=== PATIENT | female | born 1960 | race Caucasian/White ===

== ENCOUNTER 2024-09-02 09:18 | Emergency (ER) | payer MEDICARE, SELFPAY ==
[2024-09-02 09:23] VITALS: BP 154/88; PULSE 89; TEMP 36.7; O2SAT 100; BMI 28.3
[2024-09-02] MEDS: ADACEL DIPH,PERTUSS(ACELL),TET VAC/PF 0.5 ML ADULT SYRINGE IM (09:56)
[2024-09-02] MEDS: LIDOCAINE HCL 1% 100 MG/10 ML MDV INJ (09:57)
--- NOTE | 2024-09-02 14:23 | ED_ITS ---
HPI - Wound/Laceration General Chief Complaint: Wound/Laceration Stated Complaint: LACAERATION Time Seen by Provider: 09/02/24 09:28 Source: patient Mode of arrival: walk-in Limitations: no limitations History of Present Illness HPI narrative: The patient have a laceration to the dorsum of the left hand that she sustained while she was using a knife at the kitchen. She was just cutting corn squash. The patient denies any other injury and she does not remember the last time she had a tetanus booster Related Data Home Medications ?Medication ?Instructions ?Recorded ?Confirmed No Known Home Medications 09/02/24 09/02/24 Allergies Allergy/AdvReac Type Severity Reaction Status Date / Time No Known Drug Allergies Allergy Verified 09/02/24 09:26 Review of Systems ROS Status of ROS 10 or more systems reviewed and unremark able except as noted in history and below PFSH PFSH Social History Little interest or pleasure in doing things: not at all Feeling down, depressed, or hopeless: not at all Exam Narrative Exam Narrative: Nurses notes and vital signs reviewed and patient is not hypoxic. Left arm: The patient had laceration to the dorsum of the left hand mostly just 2 cm distal to the wrist . Horizontal laceration that is measuring almost 5 cm linear cutting through the skin but not exposing the underlying structures there is no tendon exposure and there is no significant bleeding. Have a full range of movement in her fingers including the thumb, the patient laceration just over the first metacarpal head General: Well-appearing and in no apparent distress. Skin: Warm, dry, no pallor noted. No rash. Head: Normocephalic, atraumatic. Neck: Supple, non-tender. Eye: Pupils are equal, round and EOMI. No scleral icterus. Cardiovascular: Regular Rate and Rhythm without murmur, gallop or rub. Respiratory: No accessory muscle use or respiratory distress. Lungs are clear to auscultation, no wheezing, rales or rhonchi Chest Wall: no tenderness Back: No midline thoracic or lumbar vertebral tenderness. No CVA tenderness GI: Abdomen is soft, non-distended. Normal bowel sounds. No masses appreciated. No tenderness to palpation. No rebound, guarding, or rigidity noted. Neurological: A&O x4. No cranial nerve dysfunction observed. No truncal ataxia. Moves all extremities. Sensation intact. Psychiatric: Cooperative and interactive. Normal mood and affect. Constitutional Vital Signs, click to edit/add: Last Vital Signs Temp 98.1 F 09/02/24 09:23 Pulse 89 09/02/24 09:23 Resp 18 09/02/24 09:23 BP 154/88 H 09/02/24 09:23 Pulse Ox 100 09/02/24 09:23 O2 Del Method Room Air 09/02/24 09:23 Course Vital Signs Vital signs: Vital Signs Temperature 98.1 F 09/02/24 09:23 Pulse Rate 89 09/02/24 09:23 Respiratory Rate 18 09/02/24 09:23 Blood Pressure 154/88 H 09/02/24 09:23 Pulse Oximetry 100 09/02/24 09:23 Oxygen Delivery Method Room Air 09/02/24 09:23 Temperature 98.1 F 09/02/24 09:23 Pulse Rate 89 09/02/24 09:23 Respiratory Rate 18 09/02/24 09:23 Blood Pressure 154/88 H 09/02/24 09:23 Pulse Oximetry 100 09/02/24 09:23 Oxygen Delivery Method Room Air 09/02/24 09:23 MDM - Wound/Laceration MDM Narrative Medical decision making narrative: After cleaning the area thoroughly with normal saline and chlorhexidine the patient had the area infiltrated with 1% lidocaine almost 3 cc After which 9 stitches 5-O Prolene The patient was instructed about wound care and keeping the wound clean and dry and to go to the urgent care or primary care to remove the stitches after 5 to 7 days The patient is to follow up with primary care physician in next 2-3 days or to return to the emergency department should any of the signs or symptoms worsen or new symptoms develop. The patient agrees with the following Diagnosis and Treatment plan and the patient will be discharged home. Discharge Plan Discharge Chief Complaint: Wound/Laceration Clinical Impression: Laceration Patient Disposition: Home, Self-Care Time of Disposition Decision: 10:33 Condition: Good Prescriptions / Home Meds: No Action No Known Home Medications Print Language: Sinhala Instructions: Care For Your Stitches (DC) Referrals: Chapincito Marquez MD [Primary Care Provider] - 1 week Discharge Date/Time: 09/02/24 10:40
== END 2024-09-02 10:40 | disposition home or self-care (01) ==
PROVIDERS: Emergency Provider Emergency Medicine; PCP Family Medicine
DX: S61.412A Laceration without foreign body of left hand, initial encounter (principal); W26.0XXA Contact with knife, initial encounter; Z23 Encounter for immunization
CPT/HCPCS: 12002; 90471; 90715; 99283